=== PATIENT | female | born 1995 | race Caucasian/White ===

== ENCOUNTER 2021-05-05 07:31 | Emergency (ER) | payer BC, SELFPAY ==
[~2021-05-05] VITALS: Ht 170.2 cm; Wt 52.2 kg
[2021-05-05 07:45] VITALS: BP_SYST 96
[2021-05-05] MEDS ORDERED: ONDANSETRON 4 MG ODT TAB PO ONE (08:00)
[2021-05-05 08:35] LABS: BASOPHILS % (AUTO) 0.4 % (0.0-2.0); EOSINOPHILS % (AUTO) 0.4 % (0.0-4.0); HEMATOCRIT 36.9 % (36-48); HEMOGLOBIN 12.6 g/dL (12.0-16.0); LYMPHOCYTES # (AUTO) 1.3 K/uL (1.0-5.5); LYMPHOCYTES % (AUTO) 16.6 % (20.5-51.5); MEAN CORPUSCULAR HEMOGLOBIN 31 pg (27-31); MEAN CORPUSCULAR HGB CONC 34 % (32-36); MEAN CORPUSCULAR VOLUME 91 fL (79.0-98.0); MONOCYTES # (AUTO) 0.3 K/uL (0.0-1.0); MONOCYTES % (AUTO) 3.4 % (1.7-9.3); NEUTROPHILS # (AUTO) 6.2 K/uL (1.8-7.7); NEUTROPHILS % (AUTO) 79.2 % (40.0-70.0); PLATELET COUNT (AUTO) 340 K/uL (130-430); RED BLOOD CELL COUNT(AUTO) 4.07 MIL/uL (4.2-6.2); RED CELL DISTRIBUTION WIDTH 12.6 % (9.0-15.0); WHITE BLOOD COUNT (AUTO) 7.9 K/uL (4.8-10.8)
[2021-05-05 08:48] LABS: BILIRUBIN,URINE NEGATIVE (NEGATIVE); BLOOD, URINE NEGATIVE (NEGATIVE); CLARITY/URINE SL CLOUDY (CLEAR); COLOR,URINE YELLOW (YELLOW); GLUCOSE,URINE NEGATIVE (NEGATIVE); KETONES,URINE 1+ (NEGATIVE); LEUKOCYTE ESTERASE ,URINE 1+ (NEGATIVE); NITRITE, URINE NEGATIVE (NEGATIVE); PH,URINE 8.5 (5.0-8.0); PROTEIN URINE TRACE (NEGATIVE); UROBILINOGEN,URINE 0.2 (0.2-1.0)
[2021-05-05 08:52] LABS: INR 1.1 (0.8-1.2)
[2021-05-05 08:54] LABS: ALANINE AMINOTRANSFERASE 21 U/L (12-78); AMYLASE 83 U/L (0-100); ANION GAP 13 (5-15); ASPARTATE AMINOTRANSFERASE 22 U/L (10-37); CALCIUM 7.8 mg/dL (8.4-11.0); CHLORIDE 99 mmol/L (98-107); GLUCOSE 127 mg/dL (70-99); LIPASE 69 U/L (73-393); POTASSIUM 3.1 mmol/L (3.5-5.1); SODIUM SERUM 134 mmol/L (136-145); TOTAL BILIRUBIN 0.7 mg/dL (0.0-1.0); UREA NITROGEN, BLOOD 14 mg/dL (8-21)
[2021-05-05 08:57] LABS: GFR AFRICAN AMERICAN 112 mL/min (>90)
[2021-05-05 08:58] LABS: C-REACTIVE PROTEIN QUANT < 0.2 mg/dL (0-0.5)
[2021-05-05 09:16] LABS: BACTERIA,URINE RARE /HPF (None Seen)
[2021-05-05] MEDS ORDERED: ONDA-8 TL (09:24)
[2021-05-05] MEDS ORDERED: OMEP20CA15 PO (09:24)
[2021-05-05] MEDS ORDERED: HALOPERIDOL LACTATE 5 MG/ML VIAL IM ONE (09:30)
[2021-05-05 10:09] VITALS: BP_SYST 96
== END 2021-05-05 10:10 | disposition home or self-care (01) ==
LOC: SED 07:31
DX: A05.9 Bacterial foodborne intoxication, unspecified (principal); Z79.899 Other long term (current) drug therapy
CPT/HCPCS: 36415; 74176; 76376; 80053; 81000; 81025; 82150; 83605; 83690; 84703; 85025; 85610; 85730; 86140; 96372; 99284; J1630; Q0162